=== PATIENT | female | born 1985 | race Caucasian/White ===

== ENCOUNTER 2019-01-12 05:41 | Day surgery (SDC) | payer MEDICAID ==
[2019-01-07 15:49] LABS: BASOPHILS % (AUTO) 0.5 % (0-1); EOSINOPHILS # (AUTO) 0.1 X10'3 (0-0.9); EOSINOPHILS % (AUTO) 0.9 % (0-6); MEAN CORPUSCULAR HEMOGLOBIN 32.4 PG (27.0-31.0); MEAN CORPUSCULAR HGB CONC 35.1 g/dL (33.0-36.5); MEAN CORPUSCULAR VOLUME 92.2 FL (78-98); MEAN PLATELET VOLUME 8.7 FL (7.4-10.4); MONOCYTES # (AUTO) 0.5 X10'3 (0-0.9); MONOCYTES % (AUTO) 6.6 % (2-12); NEUTROPHILS # (AUTO) 5.2 X10'3 (1.8-7.7); PRE OP HEMATOCRIT 38.4 % (35.0-45.0); PRE OP HEMOGLOBIN 13.5 g/dL (12.0-16.0); PRE OP PLATELET COUNT 203 X10'3 (140-440); RED BLOOD COUNT 4.17 X10'6 (4.20-5.60); RED CELL DISTRIBUTION WIDTH 13.1 % (11.5-14.5)
[2019-01-07 15:49] LABS: CLARITY,URINE SLIGHTLY CLOUDY (Clear); COLOR,URINE YELLOW (Yellow); GLUCOSE, URINE NEGATIVE (Neg); KETONES,URINE NEGATIVE (Neg); LEUKOCYTE ESTERASE ,URINE NEGATIVE (Neg); NITRITES, URINE NEGATIVE (Neg); OCCULT BLOOD,URINE TRACE-INTACT (Neg); PH,URINE 5.5 (4.8-8.0); PROTEIN,URINE NEGATIVE (Neg); UROBILINOGEN,URINE 0.2 E.U/dL (0.2-1.0)
[2019-01-07 15:51] LABS: UA COLLECTION TYPE CLN CATCH MIDSTREAM
[2019-01-07 16:00] LABS: HCG SERUM QL NEGATIVE
[2019-01-07 16:05] LABS: ALBUMIN 3.6 G/DL (3.4-5.0); ALKALINE PHOSPHATASE 70 IU/L (46-116); BLOOD UREA NITROGEN 9 MG/DL (7-18); BUN/CREATININE RATIO 12.5 (6.6-38.0); CALCIUM 8.4 MG/DL (8.5-10.1); CHLORIDE 110 MMOL/L (99-107); CREATININE 0.72 MG/DL (0.40-0.90); PRE OP ALT 14 U/L (30-65); PRE OP ANION GAP 9 (8-16); PRE OP AST 8 U/L (10-37); PRE OP BILIRUB, TOTAL 0.3 MG/DL (0.0-1.0); PRE OP GLUCOSE 121 MG/DL (70-104); PRE OP POTASSIUM 3.6 MMOL/L (3.4-5.1); PRE OP PROTIME 10.6 SECONDS (9.0-12.0); PRE OP SODIUM 144 MMOL/L (135-145); TOTAL CARBON DIOXIDE 25.4 MMOL/L (24-32); TOTAL PROTEIN 7.1 G/DL (6.4-8.2); eGFR > 90 ML/MIN
[2019-01-07 16:07] LABS: MUCUS STRANDS MANY /LPF (Neg); SQUAMOUS EPITHELIAL CELL,UR MANY /LPF (FEW)
[2019-01-07 16:08] LABS: BACTERIA,URINE 1+ /HPF (Neg); WBC,URINE 0-4 /HPF (0-4)
[2019-01-12] VITALS (25 sets, daily range): BP systolic 107–141; BP diastolic 69–89
[~2019-01-12] VITALS: Ht 162.6 cm; Wt 93.8 kg
[~2019-01-12 05:41] MED LIST: AMOX500C42 PO
[2019-01-12] MEDS ORDERED: ceFOXitin 2 GM ADDvantage bag 100 ML IV ONE (06:00)
[2019-01-12] MEDS ORDERED: ringers solution, lacted 1,000 ML IV SCH ×2 (06:00→09:41)
[2019-01-12] MEDS ORDERED: famotidine 20mg tablet PO ONE (06:00)
[2019-01-12] MEDS ORDERED: albuterol 2.5 MG/3 ML nebule NEB ONE ×2 (06:00→07:05)
[2019-01-12] MEDS ORDERED: clindamycin phosphate 40gm vag cream ONE (06:52)
[2019-01-12] MEDS ORDERED: morphine 10mg/ml inj. ONE (06:53)
[2019-01-12] MEDS ORDERED: LIDOcaine 1% 30ml preserv. free vial ONE (06:53)
[2019-01-12] MEDS ORDERED: vasoPRESSIN 20 units/ml inj. ONE (06:53)
[2019-01-12] MEDS ORDERED: BUPIVAcaine/PF 2.5 mg/ml (0.25%) 30ml vial ONE (06:53)
[2019-01-12] MEDS ORDERED: ceFAZolin 1000mg inj ONE (06:53)
[2019-01-12] MEDS ORDERED: sevoflurane 250ml liquid IH ONE (08:05)
[2019-01-12] MEDS ORDERED: fentaNYL /PF 50mcg/ml 5ml ampule ONE (08:08)
[2019-01-12] MEDS ORDERED: midazolam 2 mg/2 ml injection ONE (08:08)
[2019-01-12] MEDS ORDERED: LIDOcaine 2% (20mg/ml) 5ml vial ONE (08:10)
[2019-01-12] MEDS ORDERED: rocuronium 10mg/ml inj IV ONE ×2 (08:10→09:47)
[2019-01-12] MEDS ORDERED: propofol inj 20 ML IV ONE (08:10)
[2019-01-12] MEDS ORDERED: ondansetron/PF 4mg/2ml inj ONE (08:37)
[2019-01-12] MEDS ORDERED: glycopyrrolate 0.2mg/ml inj ONE (08:37)
[2019-01-12] MEDS ORDERED: dexamethasone sod phosphate 4mg/ml inj. ONE (08:37)
[2019-01-12] MEDS ORDERED: neostigmine methylsulfate 1 MG/ML 10ml vial ONE (08:37)
[2019-01-12] MEDS ORDERED: fluoroscein sod 10% (100mg/ml) 5ml vial ONE (08:55)
[2019-01-12] MEDS ORDERED: ketamine 50mg/5ml syringe ONE (09:37)
[2019-01-12] MEDS ORDERED: morphine 4 MG/ML inj SYRINge IV PRN ×2 (09:45)
[2019-01-12] MEDS ORDERED: ondansetron/PF 4mg/2ml inj IV PRN (09:45)
[2019-01-12] MEDS ORDERED: meperidine/PF 25mg/ml syringe IV PRN ×3 (09:45)
[2019-01-12] MEDS ORDERED: meperidine/PF 50mg/ml syringe ONE (10:11)
[2019-01-12] MEDS ORDERED: temazepam 15mg capsule PO PRN (11:00)
[2019-01-12] MEDS ORDERED: HYDROcodone/acetaminophen 5mg/325mg tablet PO PRN ×2 (11:00)
[2019-01-12] MEDS ORDERED: CADD PCA waste documentation MC PRN (11:00)
[2019-01-12] MEDS ORDERED: normal saline 500ml IV soln 500 ML IV PRN (11:00)
[2019-01-12] MEDS ORDERED: HYDROmorphone/NS 1 mg/ml CADD 50 ML IV SCH (11:00)
[2019-01-12] MEDS ORDERED: diphenhydrAMINE 50 mg/ml inj IV PRN (11:00)
[2019-01-12] MEDS ORDERED: naloxone 0.4 mg/ml inj IV PRN (11:00)
--- NOTE | 2019-01-12 11:03 | NUR ---
Received from OR via BED, accompanied by Anesthesiologist DR VILLALTA and report given by Anesthesiologist. PT DROWSY, NO S/S OF DISTRESS/DISCOMFORT. 4 LAP SITES W/STERI-STRIPS, BANDAIDS CDI. SMALL AMT OF BLOODY DRAINAGE ON LEFT LOWER LAP SITE W/BANDAIDE, ABHAY PAD IN PLACE CDI, RODRIGUEZ CATHETER W/ FLUORESCEIN IN URINE IN DRAINAGE BAG. Addendum: 01/12/19 at 1152 by Sweetie Martinez RN Amended: Links added.
--- NOTE | 2019-01-12 12:03 | NUR ---
Patient in room . I have received report from Sweetie PARKER and had the opportunity to ask questions and assume patient care.
[2019-01-12] MEDS: morphine/NS 5 mg/ml CADD 50 ML IV SCH ×6 (12:50→23:00)
[2019-01-12] MEDS: proCHLORperazine 10 MG/2 ml inj IV PRN (12:53)
--- NOTE | 2019-01-12 13:10 | NUR ---
Patient arrived to unit
--- NOTE | 2019-01-12 13:13 | NUR ---
Report called to receiving nurse. Transferred via BED, NO Belongings, RECEIVING RN AT BEDSIDE TO RECEIVE PT. Special Issues communicated to receiving nurse. YES. Addendum: 01/12/19 at 1417 by Sweetie Martinez RN Amended: Links added.
[2019-01-12] MEDS: simethicone 80mg chew tab PO SCH ×2 (13:52→20:28)
[2019-01-12] MEDS: ringers solution, lacted 1,000 ML IV SCH ×3 (13:53→21:20)
[2019-01-12] MEDS: ketorolac trometh. 30mg/ml inj. IV PRN (13:53)
[2019-01-12] MEDS ORDERED: AMOX500C42 PO (16:27)
[2019-01-12] MEDS: ondansetron/PF 4mg/2ml inj IV PRN ×2 (16:30→23:45)
--- NOTE | 2019-01-12 18:12 | NUR ---
Problems reprioritized. Patient report given, questions answered & plan of care reviewed with Megan PARKER.
--- NOTE | 2019-01-12 22:38 | NUR ---
Patient in room [id number]. I have received report from ELENA Campbell and had the opportunity to ask questions and assume patient care. Addendum: 01/12/19 at 2239 by Megan Flores RN Amended: Links added.
[2019-01-13 00:30] VITALS: BP 147/80
[2019-01-13] MEDS: morphine/NS 5 mg/ml CADD 50 ML IV SCH ×4 (01:00→07:00)
[2019-01-13] MEDS: ketorolac trometh. 30mg/ml inj. IV PRN ×3 (01:13→13:43)
[2019-01-13] MEDS: proCHLORperazine 10 MG/2 ml inj IV PRN (03:46)
[2019-01-13 05:15] VITALS: BP 120/60
[2019-01-13 06:04] LABS: BASOPHILS % (AUTO) 0.1 % (0-1); EOSINOPHILS % (AUTO) 0.1 % (0-6); HEMATOCRIT 34.9 % (35.0-45.0); HEMOGLOBIN 11.9 g/dl (12.0-16.0); LYMPHOCYTES # (AUTO) 1.7 X10'3 (1.1-4.8); MEAN CORPUSCULAR HGB CONC 34.2 g/dL (33.0-36.5); MEAN CORPUSCULAR VOLUME 93.6 FL (78-98); MEAN PLATELET VOLUME 9.2 FL (7.4-10.4); NEUTROPHILS # (AUTO) 10.2 X10'3 (1.8-7.7); NEUTROPHILS % (AUTO) 78.8 % (42-75); PLATELET COUNT 195 X10'3 (140-440); RED BLOOD COUNT 3.73 X10'6 (4.20-5.60); RED CELL DISTRIBUTION WIDTH 12.8 % (11.5-14.5); WHITE BLOOD COUNT 12.9 X10'3 (4.5-11.0)
--- NOTE | 2019-01-13 06:18 | NUR ---
Problems reprioritized. Patient report given, questions answered & plan of care reviewed with ELENA Campbell. Addendum: 01/13/19 at 0619 by Megan Flores RN Amended: Links added.
[2019-01-13] MEDS: simethicone 80mg chew tab PO SCH ×2 (07:36→13:43)
[2019-01-13 09:17] VITALS: BP 107/61
[2019-01-13 13:37] VITALS: BP 113/68
--- NOTE | 2019-01-13 17:09 | NUR ---
Patient WC to lobby by Lidia BERGER in place with leg bag. All teaching has been completed and acknowledged with patient. Family with patient on discharge.
== END 2019-01-13 17:13 | disposition home or self-care (01) ==
LOC: PAS 05:41 → SUR 3N 10:59 → PAS 01-13 17:13
PROVIDERS: ATTEND Specialist
DX: N81.4 Uterovaginal prolapse, unspecified (principal); N39.3 Stress incontinence (female) (male); N80.0 Endometriosis of uterus; Z88.5 Allergy status to narcotic agent; Z91.040 Latex allergy status; F17.210 Nicotine dependence, cigarettes, uncomplicated; Z79.01 Long term (current) use of anticoagulants; R06.02 Shortness of breath; Z79.899 Other long term (current) drug therapy
CPT/HCPCS: 36415; 57240; 57288; 57425; 58552; 80053; 81001; 82948; 84703; 85025; 85610; 85730; 86885; 86900; 86901; 94640; 94760; C1771; J0690; J0694; J0780; J1100; J1885; J2001; J2175; J2250; J2270; J2405; J2704; J2710; J3010; J3490; J7120; A4215; A4314; A4355; A4618; A6250; A7000; G0378; J1170

== ENCOUNTER 2019-01-18 09:52 | Emergency (ER) | payer MEDICAID ==
[~2019-01-18] VITALS: Ht 162.6 cm; Wt 93.5 kg
[2019-01-18 10:42] LABS: BASOPHILS % (AUTO) 0.4 % (0-1); EOSINOPHILS # (AUTO) 0.1 X10'3 (0-0.9); EOSINOPHILS % (AUTO) 2.1 % (0-6); HEMATOCRIT 37.1 % (35.0-45.0); HEMOGLOBIN 12.8 g/dl (12.0-16.0); LYMPHOCYTES # (AUTO) 1.2 X10'3 (1.1-4.8); LYMPHOCYTES % (AUTO) 17.2 % (21-51); MEAN CORPUSCULAR HEMOGLOBIN 32.4 PG (27.0-31.0); MEAN CORPUSCULAR HGB CONC 34.6 g/dL (33.0-36.5); MEAN CORPUSCULAR VOLUME 93.8 FL (78-98); MEAN PLATELET VOLUME 8.7 FL (7.4-10.4); MONOCYTES # (AUTO) 0.6 X10'3 (0-0.9); NEUTROPHILS # (AUTO) 5.1 X10'3 (1.8-7.7); NEUTROPHILS % (AUTO) 72.3 % (42-75); PLATELET COUNT 227 X10'3 (140-440); RED BLOOD COUNT 3.96 X10'6 (4.20-5.60); RED CELL DISTRIBUTION WIDTH 13.1 % (11.5-14.5)
[2019-01-18 10:45] LABS: CLARITY,URINE CLEAR (Clear); COLOR,URINE YELLOW (Yellow); GLUCOSE, URINE NEGATIVE (Neg); KETONES,URINE NEGATIVE (Neg); LEUKOCYTE ESTERASE ,URINE NEGATIVE (Neg); NITRITES, URINE NEGATIVE (Neg); OCCULT BLOOD,URINE MODERATE (Neg); PROTEIN,URINE NEGATIVE (Neg); UROBILINOGEN,URINE 0.2 E.U/dL (0.2-1.0)
[2019-01-18 10:47] LABS: UA COLLECTION TYPE FOLEY CATH
[2019-01-18 10:52] LABS: BACTERIA,URINE NONE SEEN /HPF (Neg); RBC,URINE 0-2 /HPF (0-2); WBC,URINE NONE SEEN /HPF (0-4)
[2019-01-18 10:53] LABS: MUCUS STRANDS FEW /LPF (Neg); SQUAMOUS EPITHELIAL CELL,UR FEW /LPF (FEW)
[2019-01-18 10:58] LABS: ALANINE AMINOTRANSFERASE 15 U/L (12-78); ALBUMIN 3.6 G/DL (3.4-5.0); ALBUMIN/GLOBULIN RATIO 1.1 (1.1-1.5); ALKALINE PHOSPHATASE 80 IU/L (46-116); ANION GAP 8 (8-16); ASPARTATE AMINO TRANSFERASE 8 U/L (10-37); BILIRUBIN,TOTAL 0.3 MG/DL (0.1-1.0); BLOOD UREA NITROGEN 14 MG/DL (7-18); BUN/CREATININE RATIO 19.7 (6.6-38.0); CALCIUM 8.9 MG/DL (8.5-10.1); CHLORIDE 107 MMOL/L (99-107); CREATININE 0.71 MG/DL (0.40-0.90); GLUCOSE 92 MG/DL (70-104); POTASSIUM 4.1 MMOL/L (3.5-5.1); SODIUM 141 MMOL/L (135-145); TOTAL CARBON DIOXIDE 25.8 MMOL/L (24-32); TOTAL PROTEIN 6.9 G/DL (6.4-8.2); eGFR > 90 ML/MIN
[2019-01-18 11:10] VITALS: BP 135/110
== END 2019-01-18 12:40 | disposition home or self-care (01) ==
LOC: ER 09:52
DX: N32.89 Other specified disorders of bladder (principal); Z90.710 Acquired absence of both cervix and uterus; Z88.5 Allergy status to narcotic agent; Z79.899 Other long term (current) drug therapy
CPT/HCPCS: 36415; 80053; 81001; 85025; 99284

== ENCOUNTER 2021-05-09 16:24 | Emergency (ER) | payer MEDICAID ==
[~2021-05-09] VITALS: Ht 162.6 cm; Wt 93.2 kg
[2021-05-09 16:40] VITALS: BP 131/81
[2021-05-09] MEDS ORDERED: LIDOcaine 1% W/epiNEPHrine 1:200,000 10ml vial IJ ONE (16:45)
[2021-05-09] MEDS ORDERED: DOXY100C43 PO (17:12)
[2021-05-09] MEDS ORDERED: LIDOcaine 1% 30ml preserv. free vial IJ ONE (17:25)
== END 2021-05-09 18:00 | disposition home or self-care (01) ==
LOC: ER 16:25
DX: L02.214 Cutaneous abscess of groin (principal); Z88.5 Allergy status to narcotic agent; Z79.2 Long term (current) use of antibiotics; Z88.8 Allergy status to other drugs, medicaments and biological substances; Z90.710 Acquired absence of both cervix and uterus
CPT/HCPCS: 10060; 99283

== ENCOUNTER 2021-11-01 17:28 | Emergency (ER) | payer MEDICAID ==
[~2021-11-01] VITALS: Ht 162.6 cm; Wt 90.0 kg
[2021-11-01 17:35] VITALS: BP 124/88
[2021-11-01] MEDS ORDERED: ALBU8HFA PO (20:30)
== END 2021-11-01 21:12 | disposition home or self-care (01) ==
LOC: ER 17:29
DX: F41.9 Anxiety disorder, unspecified (principal); J45.909 Unspecified asthma, uncomplicated; R05.9 Cough, unspecified; R11.0 Nausea; R06.02 Shortness of breath; F17.200 Nicotine dependence, unspecified, uncomplicated; Z90.710 Acquired absence of both cervix and uterus; Z88.5 Allergy status to narcotic agent; Z88.8 Allergy status to other drugs, medicaments and biological substances; Z79.2 Long term (current) use of antibiotics
CPT/HCPCS: 93005; 99283

== ENCOUNTER 2021-11-03 06:27 | Emergency (ER) | payer MEDICAID ==
[~2021-11-03] VITALS: Ht 162.6 cm; Wt 90.0 kg
[~2021-11-03 06:27] MED LIST changes: +ALBU8HFA PO
[2021-11-03 07:12] LABS: BASOPHILS # (AUTO) 0.1 X10'3 (0-0.2); BASOPHILS % (AUTO) 0.7 % (0-1); EOSINOPHILS # (AUTO) 0.1 X10'3 (0-0.9); EOSINOPHILS % (AUTO) 0.9 % (0-6); HEMATOCRIT 41.6 % (35.0-45.0); HEMOGLOBIN 14.4 g/dl (12.0-16.0); LYMPHOCYTES # (AUTO) 1.5 X10'3 (1.1-4.8); MEAN CORPUSCULAR HEMOGLOBIN 32.1 PG (27.0-31.0); MEAN CORPUSCULAR HGB CONC 34.7 g/dL (33.0-36.5); MEAN CORPUSCULAR VOLUME 92.7 FL (78-98); MEAN PLATELET VOLUME 9.2 FL (7.4-10.4); MONOCYTES # (AUTO) 0.4 X10'3 (0-0.9); MONOCYTES % (AUTO) 5.4 % (2-12); NEUTROPHILS # (AUTO) 5.7 X10'3 (1.8-7.7); PLATELET COUNT 212 X10'3 (140-440); RED BLOOD COUNT 4.48 X10'6 (4.20-5.60); RED CELL DISTRIBUTION WIDTH 13.3 % (11.5-14.5); WHITE BLOOD COUNT 7.7 X10'3 (4.5-11.0)
[2021-11-03 07:21] LABS: ALANINE AMINOTRANSFERASE 25 U/L (12-78); ALBUMIN 4.1 G/DL (3.4-5.0); ALBUMIN/GLOBULIN RATIO 1.2 (1.1-1.5); ALKALINE PHOSPHATASE 68 IU/L (46-116); ANION GAP 14 (8-16); ASPARTATE AMINO TRANSFERASE 9 U/L (10-37); BILIRUBIN,TOTAL 0.7 MG/DL (0.1-1.0); BLOOD UREA NITROGEN 9 MG/DL (7-18); BUN/CREATININE RATIO 11.3 (6.6-38.0); CALCIUM 9.2 MG/DL (8.5-10.1); CHLORIDE 107 MMOL/L (99-107); GLUCOSE 106 MG/DL (70-104); POTASSIUM 3.6 MMOL/L (3.5-5.1); SODIUM 140 MMOL/L (135-145); TOTAL CARBON DIOXIDE 18.8 MMOL/L (24-32); TOTAL PROTEIN 7.5 G/DL (6.4-8.2); eGFR 82 ML/MIN
[2021-11-03] MEDS ORDERED: LORazepam 2 mg/ml vial IM ONE (09:40)
--- NOTE | 2021-11-03 09:51 | NUR ---
ambulated to restroom
[2021-11-03 10:26] LABS: URINE HCG NEGATIVE (NEG)
[2021-11-03 10:36] LABS: D-DIMER 0.33 MG/L FEU (0-0.50)
[2021-11-03 11:28] VITALS: BP 137/56
== END 2021-11-03 11:29 | disposition home or self-care (01) ==
LOC: ER 06:27
DX: R06.02 Shortness of breath (principal); J45.909 Unspecified asthma, uncomplicated; Z90.710 Acquired absence of both cervix and uterus; Z88.5 Allergy status to narcotic agent
CPT/HCPCS: 36415; 71045; 80053; 81025; 83880; 84484; 85025; 85379; 93005; 96372; 99285; J2060

== ENCOUNTER 2022-07-26 15:05 | Emergency (ER) | payer MEDICAID ==
[~2022-07-26] VITALS: Ht 162.6 cm; Wt 92.3 kg
[2022-07-26 15:47] VITALS: BP 117/89
== END 2022-07-26 17:43 | disposition home or self-care (01) ==
LOC: ER 15:06
DX: S60.221A Contusion of right hand, initial encounter (principal); J45.909 Unspecified asthma, uncomplicated; Z91.09 Other allergy status, other than to drugs and biological substances; Z91.040 Latex allergy status; Z90.710 Acquired absence of both cervix and uterus; X58.XXXA Exposure to other specified factors, initial encounter; Y93.89 Activity, other specified; Y92.89 Other specified places as the place of occurrence of the external cause; Y99.8 Other external cause status
CPT/HCPCS: 29125; 73130; 99283

== ENCOUNTER 2023-02-05 07:38 | Emergency (ER) | payer MEDICAID ==
[~2023-02-05] VITALS: Ht 154.9 cm; Wt 91.5 kg
[2023-02-05 08:05] VITALS: BP 121/70; PULSE 86; RESP 16; O2SAT 98
[2023-02-05] MEDS ORDERED: CYCL-1 PO (08:46)
[2023-02-05 08:55] VITALS: TEMP 98
--- NOTE | 2023-02-05 08:55 | NUR ---
DIRECTOR BUILDING ASSESSMENT REVIEWED BY JOHN RN; APPROVED
== END 2023-02-05 08:55 | disposition home or self-care (01) ==
LOC: ER 07:38
DX: S46.911A Strain of unspecified muscle, fascia and tendon at shoulder and upper arm level, right arm, initial encounter (principal); J45.909 Unspecified asthma, uncomplicated; Z91.09 Other allergy status, other than to drugs and biological substances; Z90.710 Acquired absence of both cervix and uterus; Z91.040 Latex allergy status; Z88.5 Allergy status to narcotic agent; Z79.2 Long term (current) use of antibiotics; Z87.891 Personal history of nicotine dependence; X58.XXXA Exposure to other specified factors, initial encounter; Y93.89 Activity, other specified; Y92.89 Other specified places as the place of occurrence of the external cause; Y99.8 Other external cause status
CPT/HCPCS: 99283

== ENCOUNTER 2023-05-02 22:03 | Emergency (ER) | payer MEDICAID ==
[~2023-05-02] VITALS: Ht 162.6 cm; Wt 91.6 kg
[~2023-05-02 22:03] MED LIST changes: +CYCL-1 PO
[2023-05-02 22:10] VITALS: BP 133/81; PULSE 95; RESP 16; TEMP 98.9; O2SAT 100
[2023-05-02 22:55] LABS: BASOPHILS # (AUTO) 0.1 X10'3 (0-0.2); EOSINOPHILS # (AUTO) 0.2 X10'3 (0-0.9); EOSINOPHILS % (AUTO) 2.2 % (0-6); HEMATOCRIT 37.6 % (35.0-45.0); HEMOGLOBIN 12.5 g/dl (12.0-16.0); LYMPHOCYTES # (AUTO) 2.6 X10'3 (1.1-4.8); MEAN CORPUSCULAR HEMOGLOBIN 31.1 PG (27.0-31.0); MEAN CORPUSCULAR HGB CONC 33.3 g/dL (33.0-36.5); MEAN CORPUSCULAR VOLUME 93.2 FL (78-98); MONOCYTES # (AUTO) 0.6 X10'3 (0-0.9); MONOCYTES % (AUTO) 6.5 % (2-12); NEUTROPHILS # (AUTO) 5.1 X10'3 (1.8-7.7); NEUTROPHILS % (AUTO) 60.3 % (42-75); PLATELET COUNT 291 X10'3 (140-440); RED BLOOD COUNT 4.03 X10'6 (4.20-5.60); RED CELL DISTRIBUTION WIDTH 12.8 % (11.5-14.5); WHITE BLOOD COUNT 8.5 X10'3 (4.5-11.0)
[2023-05-02 23:01] LABS: ALBUMIN 3.6 G/DL (3.4-5.0); ANION GAP 10 (8-16); BLOOD UREA NITROGEN 11 MG/DL (7-18); BUN/CREATININE RATIO 17.2 (10.0-20.0); CALCIUM 8.5 MG/DL (8.5-10.1); CHLORIDE 107 MMOL/L (99-107); CREATININE 0.64 MG/DL (0.40-0.90); GLUCOSE 104 MG/DL (70-104); LIPASE 47 U/L (16-77); POTASSIUM 3.4 MMOL/L (3.5-5.1); SODIUM 141 MMOL/L (135-145); TOTAL CARBON DIOXIDE 24.3 MMOL/L (24-32); eCRCL 105 ML/MIN; eGFR > 90 ML/MIN
== END 2023-05-03 00:34 | disposition left against medical advice (07) ==
LOC: ER 22:04
DX: R10.11 Right upper quadrant pain (principal); Z53.21 Procedure and treatment not carried out due to patient leaving prior to being seen by health care provider
CPT/HCPCS: 36415; 80048; 83690; 85025; 99281

== ENCOUNTER 2023-08-04 10:02 | Emergency (ER) | payer MEDICAID ==
[~2023-08-04] VITALS: Ht 162.6 cm; Wt 93.0 kg
[2023-08-04 10:20] VITALS: BP 108/72; PULSE 103; RESP 16; TEMP 98.4; O2SAT 99
[2023-08-04] MEDS ORDERED: TRAM50TA2 PO ×2 (12:16→12:19)
== END 2023-08-04 12:32 | disposition home or self-care (01) ==
LOC: ER 10:02
DX: S92.352A Displaced fracture of fifth metatarsal bone, left foot, initial encounter for closed fracture (principal); J45.909 Unspecified asthma, uncomplicated; Z91.09 Other allergy status, other than to drugs and biological substances; Z91.040 Latex allergy status; Z88.5 Allergy status to narcotic agent; Z79.2 Long term (current) use of antibiotics; Z90.710 Acquired absence of both cervix and uterus; X58.XXXA Exposure to other specified factors, initial encounter; Y93.89 Activity, other specified; Y92.89 Other specified places as the place of occurrence of the external cause; Y99.8 Other external cause status
CPT/HCPCS: 29515; 73630; 99283; A6446; A6449

== ENCOUNTER 2023-08-30 11:33 | Emergency (ER) | payer MEDICAID ==
[~2023-08-30] VITALS: Ht 162.6 cm; Wt 92.7 kg
[2023-08-30 11:33] VITALS: BP 145/74; PULSE 86; RESP 16; TEMP 98.3; O2SAT 98
[2023-08-30] MEDS: LIDOcaine 1% W/epiNEPHrine 1:100,000 20ml vial IJ ONE (13:12)
[2023-08-30] MEDS ORDERED: SULF1TAB49 PO (13:30)
== END 2023-08-30 14:23 | disposition home or self-care (01) ==
LOC: ER 11:34
DX: L02.214 Cutaneous abscess of groin (principal); L73.2 Hidradenitis suppurativa; J45.909 Unspecified asthma, uncomplicated; Z90.710 Acquired absence of both cervix and uterus; Z88.8 Allergy status to other drugs, medicaments and biological substances; Z79.899 Other long term (current) drug therapy
CPT/HCPCS: 10060; 87070; 87186; 99284; A6258; A6449

== ENCOUNTER 2024-06-13 09:03 | Emergency (ER) | payer MEDICAID ==
[~2024-06-13] VITALS: Ht 401.3 cm; Wt 93.4 kg
[2024-06-13] MEDS: LIDOcaine/epinephrine/tetracaine TOPICAL sol 3 ML syringe TOP ONE (10:47)
[2024-06-13 11:44] VITALS: BP 123/64; PULSE 85; RESP 16; O2SAT 95
== END 2024-06-13 11:38 | disposition home or self-care (01) ==
LOC: ER 09:03
DX: L72.0 Epidermal cyst (principal); Z90.710 Acquired absence of both cervix and uterus; Z88.5 Allergy status to narcotic agent; Z91.040 Latex allergy status; Z91.048 Other nonmedicinal substance allergy status
CPT/HCPCS: 99282; 99283; A6449

== ENCOUNTER 2024-06-19 16:34 | Emergency (ER) | payer MEDICAID ==
[~2024-06-19] VITALS: Ht 162.6 cm; Wt 93.9 kg
[2024-06-19 16:40] VITALS: BP 134/61; PULSE 91; RESP 16; TEMP 98.7; O2SAT 98
[2024-06-19] MEDS ORDERED: DOXY-347 PO (17:30)
[2024-06-19] MEDS: LIDOcaine 1% W/epiNEPHrine 1:100,000 20ml vial SQ ONE (17:33)
[2024-06-19] MEDS: DOXYCYCLINE 100MG CAPSULE PO STA (17:44)
== END 2024-06-19 17:47 | disposition home or self-care (01) ==
LOC: ER 16:34
DX: L02.214 Cutaneous abscess of groin (principal); J45.909 Unspecified asthma, uncomplicated; Z90.710 Acquired absence of both cervix and uterus; Z88.5 Allergy status to narcotic agent; Z91.040 Latex allergy status; Z91.048 Other nonmedicinal substance allergy status
CPT/HCPCS: 99283; A6266; A6449

== ENCOUNTER 2024-09-22 06:59 | Emergency (ER) | payer MEDICAID ==
[~2024-09-22] VITALS: Ht 162.6 cm; Wt 92.5 kg
--- NOTE | 2024-09-22 07:38 | Physician Documentation ---
History of Present Illness Chief Complaint: Abdominal Pain Stated Complaint: ABD PAIN Time Seen by MD: 07:33 Primary Medical Doctor: [facility] HPI This is a pleasant 39-year-old female with a prior history of hysterectomy, cholecystectomy, who comes in for evaluation of what provoked right upper quadrant abdominal pain similar to prior biliary colic that began yesterday even ing without any obvious trigger, trauma provocation. The particular palliating or aggravating factors. Reports nausea and vomiting this morning. Reports chills, subjective fever, hot flashes. Denies any dysuria hematuria. Denies chest pain or difficulty breathing. No concern for tobacco, alcohol or illicit substances use Medication Reconciliation Allergies: Coded Allergies: adhesive tape (Unverified Allergy, Unknown, 07/26/22) latex (Unverified Allergy, Unknown, 07/26/22) morphine (Unverified Allergy, Unknown, RED BLOTCHING FACE, AND ITCHING ALL BODY, 01/18/19) hydrocodone (Verified Adverse Reaction, Intermediate, VOMITING & HIVES, 01/09/19) Scheduled Amoxicillin (Amoxicillin), 1 CAP PO TID, (Reported) Scheduled PRN Cyclobenzaprine* (Cyclobenzaprine*), 1 TAB PO TID PRN for pain albuterol inhaler (Pro-Air Inhaler), 1-2 PUFFS PO Q4H PRN for shortness of breath Past Medical History Past Medical History: No Pertinent History, Asthma, *DERMATOLOGY* Past Surgical History: hysterectomy Drug Use: none Lives with: Spouse Lives In: Home Review of Systems ROS 10 point review of systems was performed and unless noted above in HPI is negative for acute process/complaint. Physical Exam Vital Signs: Temperature: 97.5, Source: Temporal, Heart Rate: 84, Respiratory Rate: 18, BP: 117/78, Pulse Oximetry: 98, Weight: 92.500 Oxygen Flow Rate: 0 Physical Exam GENERAL: Awake, alert, oriented, GCS 15, no apparent distress, non-toxic appearing, answers questions, follows commands appropriately. Examined in tri age. HEENT: Atraumatic, normocephalic, pupils equal, extraocular muscles intact, sclerae anicteric, mucus membranes moist, oropharynx is clear, no stridor. NECK: supple, full active range of motion, trachea midline, no thyromegaly, no lymphadenopathy, no JVD. CARDIOVASCULAR: regular rate/rhythm, no murmurs/gallops/rubs, Pulses are 2+ in all extremities and symmetric. Capillary refill less than 2 seconds. PULMONARY: Nonlabored, good air movement ,no respiratory distress, speaking in full sentences, clear to auscultation bilaterally, no wheezing, no ronchi, no rales, no accessory muscle use. GASTROINTESTINAL: Soft, right upper quadrant tenderness to palpation reproducing chief complaint, non-distended, normal active bowel sounds, no organomegaly, no pulsatile masses, no CVA tenderness. NEUROLOGIC: Lucid with normal mental status. Normal facial symmetry. Moves all extremities symmetrically and with purpose. No truncal ataxia. Speech is fluid without evidence of dysarthria or aphasia, no focal deficits appreciated. MUSCULOSKELETAL: There is full range of motion of all extremities. There is no joint pain or joint swelling or joint erythema. There is no muscle pain or tenderness or swelling. EXTREMITIES: warm, well-perfused, no cyanosis, no clubbing, no edema, no acute deformities. Skin: warm, dry, no rashes or lesions, no jaundice, no petechiae orpurpura. No ecchymosis. PSYCHIATRIC: Normal affect, normal insight, normal concentration. Focused exam: [] No guarding or rebound Progress Results/Orders Results/Orders Orders - NANCY GARCIA DO Urinalysis, Cult If Indicated (09/22/24 07:12) Hcg, Ur Ql (09/22/24 07:12) Cbc/Diff (09/22/24 07:12) Lipase (09/22/24 07:12) CMP (09/22/24 07:12) Ct Abdomen Pelvis (09/22/24 07:34) Ondansetron Inj. (Zofran 4mg/2ml Vial) (09/22/24 07:35) Ketorolac Trometh 30mg/Ml Vial (Toradol (09/22/24 07:35) Vital Signs 09/22/24 07:09 Temp 97.5 Pulse 84 Resp 18 B/P (MAP) 117/78 Pulse Ox 98 O2 Flow Rate 0 Medical Decision Making Findings Facility Status: ED Holds, RME process The plan was discussed with the patient, who demonstrates clear understanding of the plan and is in agreement with the plan unless otherwise noted in the chart. All questions have been answered, all concerns were addressed unless otherwise documented. I was available throughout their ED stay for frequent reassessment and questions. Differential Diagnoses (considered and possible or likely): [Differential diagnosis considered includes acute appendicitis, acute cholecystitis, pancreatitis, gastritis, PUD, diverticulitis, mesenteric ischemia, abdominal aortic aneurysm, bowel obstruction, enteritis, colitis, fecal impaction, volvulus, IBS, inflammatory bowel disease, specific food intolerance, p eritonitis, perforated viscous, malignancy, UTI, abscess, and abdominal pain NOS. Pelvic source of pain was also considered including endometritis, dysmenorrhea, ovarian cyst, ovarian torsion, PID, TOA, cervicitis, vaginitis, or uterine fibroid. History, physical exam, and workup exclude many of the more serious causes listed above. ] ??Differential Diagnoses (considered and unlikely, not requiring evaluation currently): [See above] MDM Data Please see [facility] for the following: Independent Historians and external Records Review. Historian: [Patient] Independent Historians: ?[Record review] Medication Management: [Reviewed medication list] Social History and determinants: [Reviewed] Please see the body of the note for the following: Any independent interpretations of ECG, imaging studies. All vitals signs/haemodynamics, ordered tests were independently reviewed and interpreted by myself. Nursing triage complaint and vitals reviewed, additional nursing notes were reviewed as available and I agree unless otherwise noted or documented in contradiction in the chart Vital Signs: Independently reviewed Labs: Independently interpreted Imaging: Independently interpreted Old Medical Records: Independently reviewed, see HPI for relevant summary and information Pulse Oximetry: [99%] interpreted as [normal on room air] by me [Sewing Machine Adjuster: [Regular Rate, Regular rhythm, no ectopy, NSR] reviewed and interpreted by me] Additionally notably showing: [Hemodynamically stable. No evidence of hypotension, respiratory, tachycardia. Laboratory studies unremarkable. Normal lipase. UA he spent a for UTI. CT shows right adnexal cyst. Otherwise unremarkable.] Tests considered but not ordered include: [Right upper quadrant ultrasound has been considerably the patient is already status post cholecystectomy] Social Determinants of Health Impact: Patient was evaluated in [facility] [place] to healthcare due to below par ratio of patient to medical providers. [] Comorbid Conditions Impacting Present Evaluation and Care/Treatment: [Status post cholecystectomy, status post hysterectomy] Management Discussions with other Healthcare Providers: [None] Treatment and Disposition Medication Management (Given or considered): [Pain management]. See EMR for details Consideration for Hospitalization/Escalation/Deescalation of Care: Admission for observation has been considered, [however the patient is able to tolerate p.o., their symptoms are controlled, they are able to rely on oral medications, and their chief complaint/diagnosis can be managed on outpatient basis.] ?ED Course:?[No clinical deterioration. No acute disease process requiring surgical intervention. It does not require admission to the hospital. Can be treated with outpatient antibiotics.] ?Shared decision making:?[Patient is hemodynamically stable for discharge home with follow with their primary care provider. [ ] Specific and cautious return precautions provided and discussed with full understanding. Any incidental findings were also discussed and follow up recommendations given. [] All questions answered. Patient/family were able to verbalize back return precautions. Patient/family agree to plan. Copies of imaging and laboratory studies were provided.] Code status:?FULL Please see the full Electronic Medical Record for full details of nursing documentation, medications list, other records of complete past medical history and conditions, vital signs, laboratory studies, and any radiologic study interpretations by radiologists. Portions of this note were completed using [employer] dictation software and as a result there may exist minor errors in spelling. I have reviewed elements of past family and social history and agree as included in note. Departure Disposition: 01 HOME / SELF CARE / HOMELESS Impression: Primary Impression: Right sided abdominal pain Additional Impression: Urinary tract infection Discharge Instructions: Abdominal Pain (Nonspecific), Urinary Tract Infection, Adult Referrals: NO PRIMARY CARE PROVIDER (PCP) Prescriptions Amox Tr/Potassium Clavulanate (Augmentin 875-125 Tablet) 1 Each Tablet 1 TAB PO Q12H for 7 Days, #14 TAB Prov: NANCY GARCIA DO 09/22/24 Dicyclomine HCl (Dicyclomine HCl) 20 Mg Tablet 1 TAB PO Q12H for irritable bowel symptoms for 30 Days, #60 TAB 0 Refills Prov: NANCY GARCIA DO 09/22/24 ONDANSETRON ODT 4mg tablet (ONDANSETRON ODT) 4 Mg Tab.rapdis 1 TAB PO Q6H PRN PRN for nausea/vomiting for 4 Days, #16 TAB 0 Refills Prov: NANCY GARCIA DO 09/22/24 Education Educated: Patient, Family Educated regarding: diagnosis, treatment, prognosis, need for follow up Signature Scribe Signature: No scribe Attestation: This note accurately reflects clinical decisions, work performed by myself, DO JOSE Gillespie NICHOLAS M DO Sep 22, 2024 07:38
[2024-09-22 07:53] LABS: URINE HCG NEGATIVE (NEG)
[2024-09-22 07:57] LABS: LEUKOCYTE ESTERASE ,URINE SMALL (Neg); NITRITES, URINE NEGATIVE (Neg); OCCULT BLOOD,URINE SMALL (Neg)
[2024-09-22 08:09] LABS: UA COLLECTION TYPE CLN CATCH MIDSTREAM
[2024-09-22 08:14] LABS: MUCUS STRANDS FEW /LPF (Neg); SQUAMOUS EPITHELIAL CELL,UR MANY /LPF (FEW)
[2024-09-22] MEDS: ondansetron/PF 4mg/2ml inj IV ONE (08:18)
[2024-09-22] MEDS: ketorolac trometh 30MG/ML vial 30 MG/ML VIAL IV ONE (08:19)
[2024-09-22 08:33] LABS: MEAN PLATELET VOLUME 9.6 FL (7.4-10.4); RED CELL DISTRIBUTION WIDTH 12.9 % (11.5-14.5)
[2024-09-22 08:54] LABS: CREATININE 0.64 MG/DL (0.40-0.90); TOTAL CARBON DIOXIDE 21.3 MMOL/L (24-32); eCRCL 103 ML/MIN; eGFR > 90 ML/MIN
[2024-09-22] MEDS ORDERED: iohexol 300mg/ml 100ml inj. ONE (09:07)
--- NOTE | 2024-09-22 09:56 | RADIOLOGY REPORT ---
Exam: CT CT ABDOMEN PELVIS W/ IV CONTRAST History: R sided abd pain, n/v Comparison Study: None Contrast: Type of contrast: Omnipaque 300 Contrast injected: 100 mL Contrast wasted: 0 TECHNIQUE: CT scan of the abdomen pelvis was performed with intravenous contrast. Coronal and sagitt al reformatted images are submitted. Radiation Dose Information: CT Dose: CTDI volume is 29.6 mGy. Dose-length product is 1567.6 mGy*cm FINDINGS: Lung Bases: No acute or significant lung base finding. Normal heart size. No pleural or pericardial effusion. Liver: The liver is normal in size. No focal lesions. Normal hepatic vascular enhancement. Gallbladder and Biliary Tree: The gallbladder is surgically absent. No biliary ductal dilatation. Spleen: Unremarkable. Pancreas: The pancreas is normal in appearance without focal lesions or abnormal enhancement. Adrenal Glands: Unremarkable. Kidneys: Kidneys demonstrate normal symmetric enhancement without focal lesions, calculi or hydroneph rosis. Bladder: Unremarkable Bowel: The stomach is grossly normal in appearance. Small bowel and colon are normal in caliber and d istribution. The appendix is visualized and is normal. Peritoneum: No pneumoperitoneum. No ascites. Lymphadenopathy: No mesenteric, retroperitoneal or periportal lymphadenopathy. Abdominal Wall and Mesentery: Unremarkable. Vasculature: The visualized abdominal aorta is normal in size and caliber. Abdominal and pelvic vess els demonstrate normal enhancement. Pelvic Organs: There is a 2.8 cm right adnexal cystic lesion. The uterus is absent. Cystic structures in the region of the vagina compatible with Ron's cyst. Musculoskeletal: No aggressive focal bony lesions, acute fractures or dislocation. Soft tissues: Unremarkable. IMPRESSION: 1. 2.8 cm right adnexal cystic lesion. This can be further evaluated with pelvic ultrasound. No pelv ic free fluid. 2. Hysterectomy. 3. Cholecystectomy. All CT scans at this medical facility are performed using dose modulation techniques as appropriate t o a performed exam including the following: Automated exposure control was utilized; adjustment of th e MA and/or KV according to patient size; and use of iterative reconstruction technique.
[2024-09-22] MEDS ORDERED: AMOX-117 PO (10:19)
[2024-09-22] MEDS ORDERED: ONDA-243 PO (10:19)
[2024-09-22] MEDS ORDERED: DICY20TA17 PO (10:19)
[2024-09-22 10:39] VITALS: BP 116/65; PULSE 52; RESP 16; TEMP 98.2; O2SAT 98
== END 2024-09-22 10:44 | disposition home or self-care (01) ==
LOC: ER 06:59
DX: N39.0 Urinary tract infection, site not specified (principal); Z90.710 Acquired absence of both cervix and uterus; Z88.5 Allergy status to narcotic agent; Z91.040 Latex allergy status; Z91.048 Other nonmedicinal substance allergy status
CPT/HCPCS: 36415; 74177; 80053; 81001; 81025; 83690; 85025; 96374; 96375; 99285; J1885; J2405; Q9967

== ENCOUNTER 2024-11-04 19:51 | Emergency (ER) | payer MEDICAID ==
[~2024-11-04] VITALS: Ht 162.6 cm; Wt 94.0 kg
[~2024-11-04 19:51] MED LIST changes: +DICY20TA17 PO; +GABA-530 PO; +MELO-102 PO; +METH-798 PO; +ONDA-243 PO
[2024-11-04 20:02] VITALS: PULSE 108; O2SAT 99
--- NOTE | 2024-11-04 21:54 | RADIOLOGY REPORT ---
EXAM: MR MRI LUMBAR SPINE CLINICAL HISTORY: Persistent pain, incontinence of bowel COMPARISON: DI LUMBAR SPINE LIMITED on DOS: 11/02/24 CT abdomen and pelvis 09/22/2024 TECHNIQUE: MRI imaging of the lumbar was performed on a MRI imaging system without intravenous contrast. FINDINGS: 5 [id number] lumbar-type vertebrae. Mild straightening of the lumbar lordosis. Suggested 9 mm he mangioma within the right L2 vertebral body. Minimal endplate degenerative marrow signal at T12-L1 an d L5-S1. The conus terminates at the level of the mid vertebral body of T12 with no abnormal cord signal. T12-L1 through L4-L5: No significant spinal canal or neural foramina stenosis. L5-S1: Minimal posterior disc bulge with left eccentric disc extrusion measuring up to 9 mm in AP kalpana meter and extending along the posterior inferior L5 vertebral body and contacting the left S1 axel ing nerve root. No significant spinal canal stenosis. Moderate to severe left-sided neural foramina s tenosis. Minimal bilateral facet effusion. The paraspinal muscles are unremarkable. Cystic structures within the left hemipelvis which are partially imaged may represent ovarian follicl es. Additional Nonspecific 1.6 cm cystic structure over the left presacral region, unchanged from CT abdomen and pelvis of 09/22/2024. IMPRESSION: 9 mm in AP diameter left eccentric disc extrusion at L5-S1 extending along the posterior L5 vertebral body and contacting the left S1 traversing nerve root. Moderate to severe left-sided neural foramina stenosis at L5-S1. No significant spinal canal stenosis. No cord compression.
[2024-11-04 23:16] VITALS: RESP 16
[2024-11-04] MEDS: ketorolac trometh 15mg/ml vial 15 MG/ML ML IM ONE (23:16)
--- NOTE | 2024-11-04 23:20 | Physician Documentation ---
History of Present Illness ~ Chief Complaint: Back Pain Stated Complaint: BACK PAIN Time Seen by MD: 21:42 Primary Medical Doctor: [facility] HPI Patient is a 39-year-old female that presents to the emergency department for re-evaluation of chronic back pain. Reports that she is unable to do anything but lie down on her side because the pain is so unbearable. Patient was seen here on Saturday was sent home with gabapentin meloxicam and and 1 other medication. Patient reports that she was incontinent of stool prior to coming into the emergency department which was very concerning to her. Patient reports that her pain has progressively gotten worse she has numbness and tingling in her lower extremities bilaterally. Medication Reconciliation Allergies: Coded Allergies: adhesive tape (Unverified Allergy, Unknown, 11/04/24) latex (Unverified Allergy, Unknown, 11/04/24) morphine (Unverified Allergy, Unknown, RED BLOTCHING FACE, AND ITCHING ALL BODY, 11/04/24) hydrocodone (Verified Adverse Reaction, Intermediate, VOMITING & HIVES, 11/04/24) Scheduled Amoxicillin (Amoxicillin), 1 CAP PO TID, (Reported) Dicyclomine HCl (Dicyclomine HCl), 1 TAB PO Q12H Gabapentin (Gabapentin), 1 CAP PO Q8H Meloxicam (Meloxicam), 1 TAB PO DAILY Methocarbamol (Methocarbamol), 1 TAB PO Q8H Scheduled PRN Cyclobenzaprine* (Cyclobenzaprine*), 1 TAB PO TID PRN for pain ONDANSETRON ODT 4mg tablet (Ondansetron Odt), 1 TAB PO Q6H PRN PRN for nausea/vomiting albuterol inhaler (Pro-Air Inhaler), 1-2 PUFFS PO Q4H PRN for shortness of breath Past Medical History Past Medical History: No Pertinent History, Asthma, *DERMATOLOGY* Past Surgical History: hysterectomy Smoking Status: Never smoker Drug Use: none Lives with: Spouse Lives In: Home Review of Systems ROS As stated above in the HPI, otherwise all systems are reviewed and negative. Physical Exam Physical Exam Vital Signs: Temperature: 96.3, Source: Temporal, Heart Rate: 108, Respiratory Rate: 15, Pulse Oximetry: 99, Weight: 94.000 Physical Exam VITALS: Reviewed and as above. GENERAL: Alert, no apparent distress. HEENT: Normocephalic, atraumatic, PERRL, EOMI, dry mucosa, no erythema RESPIRATORY: Lungs clear, normal breath sounds, no respiratory distress. CHEST: No accessory muscle use, no retractions CV: Regular rate, rhythm, no edema, no murmur, No: JVD GI: Soft, non-tender, bowels sounds present, no rebound, guarding, or rigidity BACK: No CVA tenderness, or swelling MUSCULOSKELETAL No deformities, no edema, significant pain with palpation of the lumbar region of her spine during examination SKIN: Warm and dry, no rash NEURO: Oriented x4, No motor or sensory deficit PSYCH: Normal mood and affect, no agitation Progress Results/Orders Results/Orders Orders - JOSSELINE COX CAN SORTER Mri Lumbar Spine (11/04/24 21:15) Ketorolac Trometh 15mg/Ml Vial (Toradol (11/04/24 23:05) Acetaminophen 325mg Tablet (Tylenol Tabl (11/04/24 23:05) Cyclobenzaprine Tablet (Flexeril Tablet) (11/04/24 23:05) Completed Orders - JOSSELINE COX CAN SORTER Mri Lumbar Spine (11/04/24 21:15) Vital Signs 11/04/24 20:02 Temp 96.3 Pulse 108 Resp 15 Pulse Ox 99 Medical Decision Making Findings This patient presents with back pain most consistent with severe lumbosacral radiculopathy. Differential diagnoses includes lumbago versus musculoskeletal spasm / strain versus sciatica and lumbosacral radiculopathy. Positive straight leg raise. Patient reported 1 episode of bowel incontinence. MRI was performed ruled out cauda equina syndrome at this time. Presentation not consistent with malignancy (lack of history of malignancy, lack of B symptoms), fracture (no trauma, no bony tenderness to palpation), AAA, viscus perforation, osteomyelitis or epidural abscess (no IVDU, vertebral tenderness), renal colic, pyelonephritis (afebrile, no CVAT, no urinary symptoms). Given the clinical picture, no indication for imaging at this time. Patient being discharged with Flexeril course of steroids and Tylenol and ibuprofen for pain. She will follow up with her primary care provider. Patient will return to the emergency department with any worsening or recurrent symptoms any bowel or bladder incontinence, anesthesia, numbness of the lower extremities inability to ambulate report any other additional concerning symptoms that we discussed here today. Differential Dx:Considerations: Include: AAA, Aortic dissection, , Appendicitis, Bowel obstruction, Cholelithiasis, Cholangitis, DJD, Ectopic , Fracture, Hepatitis, HNP, Musculoskeletal pain, Pancreatitis, Pyelonephritis, Strain, Urinary obstruction, Urolithiasis, Ovarian torsion, Other Departure Disposition: 01 HOME / SELF CARE / HOMELESS Impression: Primary Impression: Back problem Additional Impressions: Low back pain Lumbosacral strain Chronic back pain Sacral radiculopathy Condition: Stable Discharge Instructions: Chronic Back Pain, Lumbosacral Strain, Sciatica Referrals: NO PRIMARY CARE PROVIDER (PCP) Prescriptions Cyclobenzaprine* (Cyclobenzaprine*) 10 Mg Tablet 1 TAB PO TID for 5 Days, #15 TAB Prov: JOSSELINE COX 11/04/24 Prednisone* (Prednisone*) 20 Mg Tablet 1 TAB PO DAILY for 5 Days, #5 TAB Prov: JOSSELINE COX 11/04/24 Education Educated: Patient Educated regarding: diagnosis, treatment, need for follow up Signature Scribe Signature: A Attestation: Scribed for Josseline Cox by ROGELIO Cali . 11/04/24 23:24 JOSSELINE COX Nov 04, 2024 23:20
[2024-11-04] MEDS ORDERED: CYCL-1 PO (23:23)
[2024-11-04] MEDS ORDERED: PRED20TA PO (23:23)
[2024-11-04 23:35] VITALS: TEMP 96.3
== END 2024-11-04 23:36 | disposition home or self-care (01) ==
LOC: ER 19:52
DX: S39.012A Strain of muscle, fascia and tendon of lower back, initial encounter (principal); M54.18 Radiculopathy, sacral and sacrococcygeal region; Z88.5 Allergy status to narcotic agent; Z90.710 Acquired absence of both cervix and uterus; Z91.040 Latex allergy status; Z79.899 Other long term (current) drug therapy; X58.XXXA Exposure to other specified factors, initial encounter; Y93.89 Activity, other specified; Y92.89 Other specified places as the place of occurrence of the external cause; Y99.8 Other external cause status
CPT/HCPCS: 72148; 96372; 99285; J1885